=== PATIENT | female | born 1975 | race Caucasian/White ===

== ENCOUNTER 2017-12-09 06:40 | Emergency (ER) | END 2017-12-09 12:08 | disposition home or self-care (01) ==

== ENCOUNTER 2018-01-03 09:36 | Inpatient (IN) | END 2018-01-09 17:10 | disposition home or self-care (01) | DRG 372 ==

== ENCOUNTER 2018-04-21 07:14 | Emergency (ER) | payer OTHER ==
[~2018-04-21] VITALS: Ht 167.6 cm; Wt 121.1 kg
[~2018-04-21 07:14] MED LIST: CHOL100062 PO; GABA300C16 PO; ONDA4TAB13 PO; OXYB5TAB22 PO; PARO-37 PO; PHEN-538 PO; QUESTRAN PO; RANI150T5 PO; TRAM50TA PO; VANC250C12 PO
[2018-04-21 07:17] VITALS: Ht 167.6 cm; Wt 121.1 kg
[2018-04-21] MEDS ORDERED: ONDANSETRON (ODT) 4 MG TAB ODT STA (07:36)
[2018-04-21] MEDS ORDERED: HYDROCODONE/APAP (10/325) TAB PO ONE (08:00)
[2018-04-21 08:49] VITALS: BP 132/75; PULSE 78; RESP 18
--- NOTE | 2018-04-21 09:44 | ERD ---
ER Documentation Chief Complaint Chief Complaint b/l flank pain , diarrhea x 1 week HPI Patient is a 43-year-old female with a history of chronic pain who presents with flank pain. The patient has a history of kidney stones and C. difficile infection in the past. She has bilateral flank pain. She said the symptoms started in 1996. She said that she has not been getting better though over the past few days so came to the ER. She has subjective fevers but says that it was "real low". She tried 2 ibuprofen. She has recently lost her pain management doctor. She had nausea, vomiting, and diarrhea. She complains of abdominal pain as well. Upon review of the [facility] database she has multiple prescriptions for [place] prescribed by different doctors. ROS All systems reviewed and are negative except as per history of present illness. Medications Home Meds Active Scripts Ranitidine Hcl* (Ranitidine Hcl*) 150 Mg Tablet, 150 MG PO BID for 30 Days, TAB Prov:CLAUDIO DORAN MD 01/09/18 Vancomycin Hcl (Vancocin Hcl Oral) 250 Mg Capsule, 250 MG PO Q6 for 7 Days, CAP Prov:CLAUDIO DORAN MD 01/09/18 Cholestyramine* (Questran*) 1 Pkt Susp, 1 PKT PO TID for 30 Days Prov:CLAUDIO DORAN MD 01/09/18 Reported Medications Tramadol Hcl* (Ultram*) 50 Mg Tablet, 50 MG PO Q6H PRN for PAIN, TAB 01/01/18 Cholecalciferol* (Vitamin D3*) 1,000 Unit Tablet, 2000 UNIT PO DAILY, TAB 01/01/18 Paroxetine Hcl* (Paroxetine*) 20 Mg Tablet, 20 MG PO DAILY, TAB 01/01/18 Gabapentin* (Gabapentin*) 300 Mg Capsule, 900 MG PO TID, #270 CAP 01/01/18 Ondansetron Hcl* (Zofran*) 4 Mg Tab, 4 MG PO BID PRN for NAUSEA AND OR VOMITING, TAB 01/01/18 Oxybutynin Chloride* (Ditropan* XL) 5 Mg Tabsr, 5 MG PO DAILY PRN for KIDNEY STONES, TAB.SA 01/01/18 Phenazopyridine Hcl* (Pyridium*) 200 Mg Tab, 200 MG PO DAILY PRN for KIDNEY STONES, TAB 01/01/18 Allergies Allergies: Coded Allergies: No Known Allergy (Unverified , 12/09/17) PMhx/Soc History of Surgery: Yes (2x D&C) Anesthesia Reaction: No Hx Neurological Disorder: No Hx Respiratory Disorders: Yes (Sleep Apnea) Hx Cardiac Disorders: Yes (SVT) Hx Psychiatric Problems: Yes (PTSD, Major Depression) Hx Miscellaneous Medical Probl: No Hx Alcohol Use: No Hx Substance Use: No Hx Tobacco Use: Yes (Vape) Smoking Status: Current every day smoker FmHx Family History: diabetes Physical Exam Vitals Vital Signs Date Temp Pulse Resp B/P (MAP) Pulse Ox O2 O2 Flow FiO2 Time Delivery Rate 04/21/18 78 18 132/75 99 Room Air 08:49 (94) 04/21/18 97.8 92 18 129/69 99 07:17 (89) Physical Exam Const: No acute distress Head: Atraumatic Eyes: Normal Conjunctiva ENT: Normal External Ears, Nose and Mouth. Neck: Full range of motion. No meningismus. Resp: Clear to auscultation bilaterally Cardio: Regular rate and rhythm, no murmurs Abd: Soft, non tender, non distended. Normal bowel sounds Skin: No petechiae or rashes Back: No midline or flank tenderness Ext: No cyanosis, or edema Neur: Awake and alert Psych: Normal Mood and Affect Results 24 hrs Laboratory Tests Test 04/21/18 07:52 04/21/18 07:53 Bedside Urine pH (LAB) 5.5 Bedside Urine Protein (LAB) Negative Bedside Urine Glucose (UA) Negative Bedside Urine Ketones (LAB) Negative Bedside Urine Blood 2+ Bedside Urine Nitrite (LAB) Negative Bedside Urine Leukocyte Esterase (L Negative POC Beta HCG, Qualitative NEGATIVE Current Medications Medications Dose Sig/Charles Start Time Status Last (Trade) Ordered Route PRN Stop Time Admin Dose Reason Admin 1 tab ONCE ONCE 04/21/18 DC 04/21/18 Acetaminophen PO 08:00 04/21/18 07:43 / 08:01 Hydrocodone Bitart ([place] (10/325)) Ondansetron 4 mg ONCE STAT 04/21/18 DC 04/21/18 HCl (Zofran ODT 07:36 04/21/18 07:43 Odt) 07:37 Procedures/MDM Urine test is negative. Urine dip shows 2+ blood but no infection. Patient is a 43-year-old female who presents with acute on chronic pain. She was given [place] and Zofran. She feels better. There is no sign of infection. I doubt C. difficile infection at this time. I doubt other serious bacterial infection. I believe outpatient management is appropriate. I believe the risk of doing a CT scan of the abdomen and pelvis outweigh the benefits as the patient has multiple CT scans in the past. The patient can return for any worsening symptoms. Departure Diagnosis: Primary Impression: Flank pain Condition: Fair Patient Instructions: Flank Pain, Uncertain Cause Referrals: PASHA SMITH MD Additional Instructions: SPECIALIST: YOU HAVE A MEDICAL CONDITION WHICH REQUIRES YOU TO SEE A SP ECIALIST WITHIN THE NEXT 1-2 DAYS. PLEASE FOLLOW UP WITH YOUR PRIMARY PHYSICIAN FOR REFFERAL.IF YOU DO NOT HAVE A PRIMARY CARE PHYSICIAN AND/OR YOU CAN NOT AFFORD TO SEE A PHYSICIAN THE FOLLOWING RESOURCES HAVE BEEN SUPPLIED TO YOU. IT IS YOUR RESPONSIBILITY TO BE SEEN BY THE SPECIALIST JACOB SEGURA MD Apr 21, 2018 09:44
== END 2018-04-21 09:20 | disposition home or self-care (01) ==
LOC: E/R 07:14
DX: R10.9 Unspecified abdominal pain (principal); F17.210 Nicotine dependence, cigarettes, uncomplicated; R11.2 Nausea with vomiting, unspecified
CPT/HCPCS: 81003; 81025; Z7502; Z7610; 99283

== ENCOUNTER 2018-05-19 14:18 | Emergency (ER) | payer OTHER ==
[~2018-05-19] VITALS: Wt 110.0 kg
--- NOTE | 2018-05-19 17:00 | ERD ---
ER Documentation Chief Complaint Chief Complaint AP TODAY, HX C DIFF ROS All systems reviewed and are negative except as per history of present illness. Medications Home Meds Active Scripts Ranitidine Hcl* (Ranitidine Hcl*) 150 Mg Tablet, 150 MG PO BID for 30 Days, TAB Prov:CLAUDIO DORAN MD 01/09/18 Vancomycin Hcl (Vancocin Hcl Oral) 250 Mg Capsule, 250 MG PO Q6 for 7 Days, CAP Prov:CLAUDIO DORAN MD 01/09/18 Cholestyramine* (Questran*) 1 Pkt Susp, 1 PKT PO TID for 30 Days Prov:CLAUDIO DORAN MD 01/09/18 Reported Medications Tramadol Hcl* (Ultram*) 50 Mg Tablet, 50 MG PO Q6H PRN for PAIN, TAB 01/01/18 Cholecalciferol* (Vitamin D3*) 1,000 Unit Tablet, 2000 UNIT PO DAILY, TAB 01/01/18 Paroxetine Hcl* (Paroxetine*) 20 Mg Tablet, 20 MG PO DAILY, TAB 01/01/18 Gabapentin* (Gabapentin*) 300 Mg Capsule, 900 MG PO TID, #270 CAP 01/01/18 Ondansetron Hcl* (Zofran*) 4 Mg Tab, 4 MG PO BID PRN for NAUSEA AND OR VOMITING, TAB 01/01/18 Oxybutynin Chloride* (Ditropan* XL) 5 Mg Tabsr, 5 MG PO DAILY PRN for KIDNEY STONES, TAB.SA 01/01/18 Phenazopyridine Hcl* (Pyridium*) 200 Mg Tab, 200 MG PO DAILY PRN for KIDNEY STONES, TAB 01/01/18 Allergies Allergies: Coded Allergies: No Known Allergy (Unverified , 12/09/17) PMhx/Soc History of Surgery: Yes (2x D&C) Anesthesia Reaction: No Hx Neurological Disorder: No Hx Respiratory Disorders: Yes (Sleep Apnea) Hx Cardiac Disorders: Yes (SVT) Hx Psychiatric Problems: Yes (PTSD, Major Depression) Hx Miscellaneous Medical Probl: No Hx Alcohol Use: No Hx Substance Use: No Hx Tobacco Use: Yes (Vape) Physical Exam Vitals Vital Signs Date Temp Pulse Resp B/P (MAP) Pulse Ox O2 O2 Flow FiO2 Time Delivery Rate 05/19/18 71 18 133/104 99 Room Air 16:52 (114) 05/19/18 98.4 82 18 139/85 99 14:22 (103) Physical Exam GENERAL: Well-developed, well-nourished, well-hydrated, in no apparent distress, looks nontoxic in appearance HEENT: Moist mucous membranes, pink conjunctiva, no cervical spine tenderness or step-off deformities, no goiter, no jaundice or icterus, extraocular movements intact without pain. No submandibular induration, and no pharyngeal erythema NEURO: Alert and oriented 3, cranial nerves II through XII intact bilaterally, pupils equal round reactive to light, no focal deficits or facial asymmetry, sensation intact distally Strength 5/5 in upper and lower extremities bilaterally CARDIAC: Regular rate and rhythm, no murmurs rubs or gallops LUNGS: Clear bilaterally no wheezing crackles or stridor ABDOMEN: Soft nontender, no guarding, no rigidity, no rebound, no psoas sign no obturator sign. Normoactive bowel sounds SKIN: Warm and dry to touch, no abrasions, contusions, or hematomas, no lacerations, no ecchymosis, no target lesions, and without ulcers EXTREMITIES: No clubbing cyanosis or edema, calves are bilaterally symmetrical, no Homans sign, no popliteal cord sign. Distal pulses equal and bilateral PSYCH: Normal affect without agitation or irritability Result Diagram: 05/19/18 1710 Results 24 hrs Laboratory Tests Test 05/19/18 17:10 White Blood Count 11.5 10^3/ul Red Blood Count 4.82 10^6/ul Hemoglobin 14.8 g/dl Hematocrit 44.1 % Mean Corpuscular Volume 91.5 fl Mean Corpuscular Hemoglobin 30.7 pg Mean Corpuscular Hemoglobin Concent 33.6 g/dl Red Cell Distribution Width 11.9 % Platelet Count 310 10^3/UL Mean Platelet Volume 10.3 fl Immature Granulocytes % 0.300 % Neutrophils % 58.5 % Lymphocytes % 31.7 % Monocytes % 7.0 % Eosinophils % 1.9 % Basophils % 0.6 % Nucleated Red Blood Cells % 0.0 /100WBC Immature Granulocytes # 0.040 10^3/ul Neutrophils # 6.7 10^3/ul Lymphocytes # 3.6 10^3/ul Monocytes # 0.8 10^3/ul Eosinophils # 0.2 10^3/ul Basophils # 0.1 10^3/ul Nucleated Red Blood Cells # 0.0 10^3/ul Prothrombin Time 12.5 Sec Prothrombin Time Ratio 1.0 INR International Normalized Ratio 0.92 Activated Partial Thromboplast Time 27.0 Sec Urine Color YELLOW Urine Clarity SLIGHTLY CLOUDY Urine pH 5.0 Urine Specific [place] 1.023 Urine Ketones NEGATIVE mg/dL Urine Nitrite NEGATIVE mg/dL Urine Bilirubin NEGATIVE mg/dL Urine Urobilinogen NEGATIVE mg/dL Urine Leukocyte Esterase TRACE [place]/ul Urine Microscopic RBC 16 /HPF Urine Microscopic WBC 28 /HPF Urine Squamous Epithelial Cells MODERATE /HPF Urine Bacteria FEW /HPF Urine Mucus FEW /HPF Urine Hemoglobin 1+ mg/dL Urine Glucose NEGATIVE mg/dL Urine Total Protein NEGATIVE mg/dl Current Medications Medications Dose Sig/Charles Start Time Status Last (Trade) Ordered Route PRN Stop Time Admin Dose Reason Admin Sodium 1,000 ml @ Q1H STAT 05/19/18 05/19/18 Chloride 1,000 mls/hr IV 17:03 05/19/18 17:18 18:02 Ondansetron 4 mg ONCE STAT 05/19/18 DC 05/19/18 HCl (Zofran IV 17:03 05/19/18 17:17 Inj) 17:04 Famotidine 20 mg ONCE STAT 05/19/18 DC 05/19/18 (Pepcid) PO 17:03 05/19/18 17:16 17:04 40 ml ONCE STAT 05/19/18 DC 05/19/18 Miscellaneous PO 17:03 05/19/18 17:16 Medication 17:04 (Gi Cocktail (2)) Belladonna/ 2 tab ONCE STAT 05/19/18 DC 05/19/18 Phenobarbital PO 17:03 05/19/18 17:17 () 17:04 Ketorolac 15 mg ONCE STAT 05/19/18 DC 05/19/18 Tromethamine IV 17:03 05/19/18 17:15 (Toradol) 17:04 Ceftriaxone 50 ml @ ONCE ONCE 05/19/18 05/19/18 Sodium 100 mls/hr IVPB 17:30 05/19/18 17:44 17:59 Procedures/MDM IV line was established 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 Patient was afebrile EKG performed, read by me: 67 bpm, normal sinus rhythm, normal axis, no acute ST segment changes, narrow QRS complex, with good R-wave progression in precordial leads. Ultrasound of the gallbladder was performed, IMPRESSION: 1. Sludge in the gallbladder. No gallstones or evidence of cholecystitis. 2. Pancreas not visualized. 3. Otherwise unremarkable right upper quadrant abdomen ultrasound. I administered 1 L normal saline IV, Zofran 4 mg IV, Toradol 15 mg IV, famotidine 20 mg p.o., and a GI cocktail p.o. Urinalysis was positive for infection so I administered ceftriaxone 1 g IV Departure Diagnosis: Primary Impression: Abdominal pain Abdominal location: epigastric Qualified Codes: R10.13 - Epigastric pain Additional Impression: Acute UTI Condition: Good YVONNE SCHMITZ MD May 19, 2018 17:00
[2018-05-19] MEDS ORDERED: ONDANSETRON 4 MG INJ IV STA (17:03)
[2018-05-19] MEDS ORDERED: FAMOTIDINE 20 MG TAB PO STA (17:03)
[2018-05-19] MEDS ORDERED: SOD CHLORIDE 0.9% 1,000 ML IV STA (17:03)
[2018-05-19] MEDS ORDERED: LIDOCAINE/MYLANTA 40 ML BTL PO STA (17:03)
[2018-05-19] MEDS ORDERED: BELLADONNA/PHENOBARBITAL TAB PO STA (17:03)
[2018-05-19] MEDS ORDERED: KETOROLAC 15 MG INJ IV STA (17:03)
[2018-05-19] MEDS ORDERED: CEFTRIAXONE 1 GM/50 ML (PMX) 50 ML IVPB ONE (17:30)
[2018-05-19] MEDS ORDERED: LACT1CAP17 PO (18:02)
[2018-05-19] MEDS ORDERED: NAPR-985 PO (18:02)
[2018-05-19] MEDS ORDERED: CEPH-443 PO (18:02)
[2018-05-19 18:55] VITALS: BP 113/72; PULSE 73; RESP 16
== END 2018-05-19 19:09 | disposition home or self-care (01) ==
LOC: E/R 14:18
DX: N39.0 Urinary tract infection, site not specified (principal)
CPT/HCPCS: 36415; 76705; 80053; 81001; 83690; 84484; 85025; 85610; 85730; 86850; 86900; 86901; 87086; 93005; 96374; 96375; J0696; J1885; J2405; J7030; Z7502; Z7610